=== PATIENT | female | born 1995 | race Caucasian/White ===

== ENCOUNTER 2023-05-22 04:21 | Inpatient (IN) ==
[2023-05-22] MEDS ORDERED: OXYTOCIN 30 UNITS/NSS 30 UNITS/500 ML BAG IV PRN ×3 (07:13→19:16)
[2023-05-22] MEDS ORDERED: LIDOCAINE 1% LOCAL 20 ML VIAL INFIL PRN (07:13)
[2023-05-22] MEDS: LACTATED RINGER'S 1,000 ML IV PRN ×2 (07:15→07:53)
--- NOTE | 2023-05-22 07:31 | History & Physical Report ---
Date of Service May 22, 2023 Assessment & Plan (1) Encounter for vaginal delivery: Plan: 27 year old female, , at 39 WGA presenting in labor: Proceed with monitoring of labor with plan for vaginal delivery GBS negative Epidural placed by anesthesiology Monitor T, category 1 Administer MMR post due to equivocal titer History of Present Illness Chief Complaint: labor Primary Care Provider: [facility] 27 year old female currently at 39 WGA with SANCHO 05/19/23 as determined by LMP, presenting in labor. Has been attending regular OB appointments. +painful contractions, getting stronger, + movement, -ROM, -vaginal bleeding. OB Labs: Blood Type O Positive 10/14/22 Antibody Screen NEGATIVE 10/14/22 Hemoglobin 12.0 g/dl (12.0-16.0) 03/07/23 Hematocrit 35.6 % (37.0-47.0) L 03/07/23 Mean Corpuscular Volume 84.9 fL (80.0-100.0) 10/14/22 Platelet Count 358 K/uL (130-400) 10/14/22 Rubella IgG Antibody Equivocal (Immune) L 10/14/22 Rapid Plasma Reagin Nonreactive (Nonreactive) 10/14/22 Hepatitis B Surface Antigen. NON-REACTIVE (NON-REACTIVE) 10/14/22 Hepatitis C Antibody (EIA) NON-REACTIVE (NON-REACTIVE) 10/14/22 HIV (1&2) Ag and Ab Confirmation NON-REACTIVE (NON-REACTIVE) 10/14/22 Glucose 1 Hour 50 gm Load 155 mg/dl (70-130) H 12/02/22 OB Optional Labs: Chlamydia trachomatis RNA Not Detected (NotDetected) 10/14/22 Neisseria gonorrhoeae RNA Not Detected (NotDetected) 10/14/22 Labs Reviewed: cfDNA--? concern sex chromosome, genetic counseling and karyotype normal declines msafp--smp horizon testing neg--smp Allergies Allergy/AdvReac Type Severity Reaction Status Date / Time No Known Allergies Allergy Verified 05/22/23 04:53 Home Medications Medication Instructions Recorded Confirmed Type prenat.vits,pineda,vla-yrzj-[id number] 1 tab PO DAILY 10/11/22 05/22/23 History citalopram 20 mg tablet 20 mg PO DAILY #90 tabs 11/22/22 05/22/23 Rx Patient History Medical History (Updated 05/22/23 @ 09:10 by Dane Riley DO) Varicella vaccine PMDD (premenstrual dysphoric disorder) Anxiety Surgical History S/P wisdom tooth extraction Family History (Updated 10/11/22 @ 11:06 by Lauren Penaloza RN) Grandmother (Maternal) Pancreatic cancer Grandfather No problems noted. Grandfather (Paternal) Dementia Family/Other Mitochondrial disease Uncle Neurofibromatosis Denies family history of Ovarian cancer Breast cancer Colorectal cancer Uterine cancer Social History (Updated 10/11/22 @ 11:04 by Lauren Penaloza RN) Smoking Status: Never smoker Do You Dip or Chew Tobacco: No; Hx Alcohol Use: No Hx Substance Use: No Preferred Language: Turkish Communication Ability: Effective Demolitionist Required: No Beliefs That Will Affect Care: None marital status: marital status details: louis hicks [phone] Current Living Situation: Spouse Current Living Situation Comment: lives with current occupational status: student 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 Physical Activity Frequency: 3-4 Times per Week Physical Activity Frequency Comment: tennis, walks on bike path Sunscreen Use: Yes Sexual Activity: has been sexually active within the last 12 months Assistive Devices: Contacts Review of Systems Denies fever/chills Denies SOB, chest pain Denies dysuria Denies headache or changes in vision Physical Exam Physical Exam: General: Alert and oriented. No acute distress Cardiac: Regular rate and rhythm, no murmurs appreciated Respiratory: Lungs clear to auscultation bilaterally, No increased work of b reathing Abdominal: Gravid uterus. Bowel sounds present. Extremities: No lower extremity edema, calves non-tender bilaterally Results & Data Vital Signs (Past 12 Hours) Vital Signs Temp Pulse Resp BP 05/22/23 07:08 89 128/85 05/22/23 04:45 91 H 121/80 05/22/23 04:41 36.4 C L 18 Laboratory Results 05/22/23 Range/Units 07:25 WBC 12.87 H (4.8-10.8) K/ul RBC 4.21 (4.20-5.40) M/uL Hgb 12.4 (12.0-16.0) g/dl Hct 36.7 L (37.0-47.0) % MCV 87.2 (80.0-100.0) fL MCH 29.5 (25.0-34.0) pg MCHC 33.8 (32.0-36.0) g/dL RDW Std Deviation 47.5 H (36.4-46.3) fL RDW Coeff of Nusrat 14.9 H (11.5-14.5) % Plt Count 246 (130-400) K/uL MPV 10.7 (9.4-12.4) fL Supervising Physician Co-Signing Physician Notes Resident Physician Supervision Note: I interviewed and examined the patient. Discussed with Dr. Riley and agree with findings and plan as documented in the note. Any exceptions or clarifications are listed here: 27yo @ 39 08/30, spontaneous labor. Epidural. Anticipate . Documented By: Lorraine Long DO Resident Activity Tracking Resident Involvement: Resident Care Provided Care Provided: OB Delivery
[2023-05-22 07:57] LABS: Hematocrit (blood only) 36.7 % (37.0-47.0); Hemoglobin 12.4 g/dl (12.0-16.0); Mean Corpuscular Hemoglobin 29.5 pg (25.0-34.0); Mean Corpuscular Hgb Conc 33.8 g/dL (32.0-36.0); Mean Corpuscular Volume 87.2 fL (80.0-100.0); Mean Platelet Volume 10.7 fL (9.4-12.4); Platelet Count 246 K/uL (130-400); RDW Coefficient of Variation 14.9 % (11.5-14.5); RDW Standard Deviation 47.5 fL (36.4-46.3); Red Blood Count 4.21 M/uL (4.20-5.40); White Blood Count 12.87 K/ul (4.8-10.8)
[2023-05-22] MEDS ORDERED: LIDOCAINE 2%/EPINEPHRINE 1:200,000 20 ML PF ONE (08:36)
[2023-05-22] MEDS ORDERED: fentANYL 2 MCG/ML BUPIVacaine 0.125%-NSS 100ML BAG ONE (08:36)
[2023-05-22] MEDS ORDERED: fentaNYL citrate PF 100 MCG/2 ML VIAL ONE (08:36)
[2023-05-22] MEDS ORDERED: ePHEDrine sulfate 50 MG/ML AMP ONE (08:36)
[2023-05-22] MEDS ORDERED: BUPIVACAINE 0.25% PF 30 ML VIAL ONE (08:36)
[2023-05-22] MEDS ORDERED: SODIUM CHLORIDE 0.9% PF INJ 10 ML VIAL ONE (08:36)
[2023-05-22] MEDS ORDERED: NALOXONE HCL 1 MG in SODIUM CHLORIDE 0.9% 1,000 ML IV PRN (09:22)
[2023-05-22] MEDS ORDERED: ROPIVACAINE 0.5% PF 5 MG/ML 20 ML VIAL EPI PRN (09:22)
[2023-05-22] MEDS ORDERED: fentaNYL citrate PF 100 MCG/2 ML VIAL EPI PRN (09:22)
[2023-05-22] MEDS ORDERED: fentANYL 2 MCG/ML BUPIVacaine 0.125%-NSS 100ML BAG EPI PRN (09:22)
[2023-05-22] MEDS ORDERED: SODIUM CHLORIDE 0.9% PF INJ 10 ML VIAL EPI STA (09:22)
[2023-05-22] MEDS ORDERED: LIDOCAINE 2%/EPINEPHRINE 1:200,000 20 ML PF EPI STA (09:22)
[2023-05-22] MEDS ORDERED: NALOXONE HCL 0.4 MG/1 ML VIAL/CARP IV PRN (09:22)
[2023-05-22] MEDS ORDERED: LIDOCAINE 2% MPF LOCAL 5 ML VIAL EPI PRN (09:22)
[2023-05-22] MEDS ORDERED: BUPIVACAINE 0.25% PF 30 ML VIAL EPI STA (09:22)
[2023-05-22] MEDS ORDERED: NALBUPHINE HCL 5 MG in SYRINGE 0 ML IV PRN (09:22)
[2023-05-22] MEDS ORDERED: ePHEDrine sulfate 50 MG/ML AMP IV PRN (09:22)
[2023-05-22] MEDS ORDERED: diphenhydrAMINE 50 MG/ML VIAL IV PRN (09:22)
[2023-05-22] MEDS ORDERED: SODIUM CHLORIDE 0.9% PF INJ 10 ML VIAL EPI PRN (09:22)
[2023-05-22] MEDS ORDERED: BUPIVACAINE 0.25% PF 30 ML VIAL EPI PRN (09:22)
[2023-05-22] MEDS ORDERED: fentaNYL citrate PF 100 MCG/2 ML VIAL EPI STA (09:22)
--- NOTE | 2023-05-22 09:22 | Anesthesiology Consultation ---
Date of Service May 22, 2023 Assessment & Plan Chart Review Chart Review: Acceptable Risk for Labor Epidural Consults Requested none ASA [id number] Proposed Anesthesia Anesthesia Type: Labor Epidural History Height/Weight Height: 4 ft 11 in Weight: 63.503 kg Allergies Allergy/AdvReac Type Severity Reaction Status Date / Time No Known Allergies Allergy Verified 05/22/23 04:53 Medications Home Medications Medication Instructions Recorded Confirmed Last Taken prenat.vits,pineda,vfg-acqy-gcupf 1 tab PO DAILY 10/11/22 05/22/23 05/21/23 11:00 citalopram 20 mg tablet 20 mg PO DAILY #90 tabs 11/22/22 05/22/23 05/21/23 11:00 Active Medications Generic Name Dose Route Start Last Admin Trade Name Freq PRN Reason Stop Dose Admin Lactated Ringer's 1,000 mls @ 125 mls/hr 05/22/23 07:13 05/22/23 07:53 Lr IV 05/24/23 07:12 125 mls/hr .Q8H PRN Administration L&D Protocol Protocol Past Medical History Medical History (Updated 05/22/23 @ 09:10 by Dane Riley DO) Varicella vaccine PMDD (premenstrual dysphoric disorder) Anxiety Past Family History Family History (Updated 10/11/22 @ 11:06 by Lauren Penaloza RN) Grandmother (Maternal) Pancreatic cancer Grandfather No problems noted. Grandfather (Paternal) Dementia Family/Other Mitochondrial disease Uncle Neurofibromatosis Denies family history of Ovarian cancer Breast cancer Colorectal cancer Uterine cancer Past Surgical History Surgical History S/P wisdom tooth extraction Social History Smoking Status: Never smoker Do You Dip or Chew Tobacco: No Hx Alcohol Use: No Hx Substance Use: No Physical Exam Vital Signs Last Vital Signs Temp 36.7 C 05/22/23 07:08 Pulse 93 H 05/22/23 09:18 Resp 18 05/22/23 04:41 BP 123/73 05/22/23 09:18 Pulse Ox 98 05/22/23 09:17 Testing Laboratory Results 05/22/23 07:25
--- NOTE | 2023-05-22 11:38 | Labor Progress Brief Note ---
Date of Service May 22, 2023 Subjective Comfortable with epidural. FHT Cat 1 Elba Q 3-5 SVE 4/80/-1, bulging membranes AROM clear fluid Agreeable to pitocin if ctx do not fern picker. Assessment & Plan Admission and Anticipated Discharge Date Admission Date: May 22, 2023 Results & Data Vital Signs (Past 12 Hours) Vital Signs Temp Pulse Resp BP Pulse Ox 05/22/23 11:32 105 H 98 05/22/23 11:29 118 H 91/55 L 05/22/23 11:27 102 H 97 05/22/23 11:24 100 H 94 05/22/23 11:22 107 H 97 05/22/23 11:18 98 H 94 05/22/23 11:17 112 H 97 05/22/23 11:14 113 H 93/54 L 05/22/23 11:12 98 H 95 05/22/23 11:07 107 H 97 05/22/23 11:02 117 H 96 05/22/23 10:59 100 H 95/53 L 05/22/23 10:57 100 H 96 05/22/23 10:52 104 H 96 05/22/23 10:50 100 H 94 05/22/23 10:47 104 H 95 05/22/23 10:44 102 H 101/58 L 05/22/23 10:43 104 H 94 05/22/23 10:42 109 H 96 05/22/23 10:37 118 H 98 05/22/23 10:32 97 H 96 05/22/23 10:29 101 H 106/60 05/22/23 10:27 103 H 96 05/22/23 10:22 97 H 97 05/22/23 10:17 123 H 96 05/22/23 10:14 101 H 103/60 05/22/23 10:12 112 H 98 05/22/23 10:07 97 H 97 05/22/23 10:02 104 H 96 05/22/23 10:01 100 H 108/63 05/22/23 09:57 110 H 96 05/22/23 09:52 112 H 97 05/22/23 09:47 95 H 96 05/22/23 09:43 115 H 102/56 L 05/22/23 09:42 111 H 97 05/22/23 09:38 103 H 114/66 05/22/23 09:37 100 H 98 05/22/23 09:34 85 120/76 05/22/23 09:32 103 H 97 05/22/23 09:28 113 H 108/67 05/22/23 09:27 102 H 98 05/22/23 09:23 100 H 120/78 05/22/23 09:22 106 H 98 05/22/23 09:18 93 H 123/73 05/22/23 09:17 106 H 98 05/22/23 09:15 113 H 111/74 05/22/23 09:14 101 H 118/71 05/22/23 09:12 123 H 114/76 97 05/22/23 09:10 111 H 118/70 05/22/23 09:08 101 H 135/80 05/22/23 09:07 97 H 98 05/22/23 09:06 88 140/88 05/22/23 09:04 108 H 135/67 05/22/23 09:02 110 H 124/88 99 05/22/23 08:57 101 H 98 05/22/23 08:52 105 H 98 05/22/23 08:47 111 H 97 05/22/23 08:42 107 H 98 05/22/23 07:08 36.7 C 89 128/85 05/22/23 04:45 91 H 121/80 05/22/23 04:41 36.4 C L 18 Coding Level of Care Code None
--- NOTE | 2023-05-22 19:14 | Delivery Summary ---
Vaginal Delivery Summary Date of Service May 22, 2023 Vaginal Delivery Summary and 2nd Degree LAC Vaginal Delivery Summary: Pre-delivery diagnoses: 27yo @ 39 08/30, spontaneous labor Post-delivery diagnoses: same Procedure: spontaneous vaginal delivery Surgeon: Lorraine Long DO Complications: none Findings: Viable female . Apgars: 7, 7, 9. Weight pending, please see nursery records. Estimated blood loss: 300ml Description of delivery: The patient progressed to complete with epidural anesthesia. She then began to push. She spontaneously vaginally delivered a viable from the cephalic presentation. The head delivered in LORIE pos ition. No nuchal. The anterior shoulder delivered, followed by the posterior shoulder, followed by the body. The baby was placed on mother's abdomen and a spontaneous cry was heard. Delayed cord clamping was employed, and the cord was doubly clamped and cut. Cord blood was obtained. The placenta was delivered spontaneously intact with a 3-vessel cord. The uterus and vagina were swept of clots and debris. IV pitocin was given. The uterus became firm. The cervix, vagina, and perineum were inspected and a 2nd degree perineal laceration was noted, bilateral sulcal extensions - repaired with 3-0 Vicryl in standard fashion. Excellent hemostasis was observed. The mother and baby are recovering in stable and good condition in the room. Sponge, needle and instrument counts were correct x 2. Lorraine Long DO [facility] Vaginal Delivery Charge Vaginal Delivery Codes: 30742 global code for the antepartum, delivery, and post- Delivery Type Details: and 2nd Degree LAC
[2023-05-22] MEDS ORDERED: BENZOCAINE 20% SPRY 85 APPLN/85 GM CAN EXT PRN (19:16)
[2023-05-22] MEDS ORDERED: MEASLES, MUMPS & RUBELLA VIRUS VACCINE (MMR) VIAL SQ ONE (19:16)
[2023-05-22] MEDS ORDERED: bisacodyL 10 MG SUPP PR PRN (19:16)
[2023-05-22] MEDS ORDERED: DIPHTHERIA/TETANUS/PERTUSSIS Vaccine (Tdap, Age 7+yrs) 0.5mL SYR/VL IM ONE (19:16)
[2023-05-22] MEDS ORDERED: oxyCODONE/ACETAMINOPHEN 5mg/325mg TAB PO PRN (19:16)
[2023-05-22] MEDS ORDERED: HYDROCORTISONE ACETATE 25 MG SUPP PR PRN (19:16)
[2023-05-22] MEDS ORDERED: ACETAMINOPHEN 325 MG TAB PO PRN (19:16)
[2023-05-22] MEDS: IBUPROFEN 600 MG TAB PO PRN (21:23)
[2023-05-22] MEDS: DOCUSATE SODIUM 100 MG CAP PO SCH (21:23)
--- NOTE | 2023-05-22 22:46 | Anesthesia Procedure Note ---
Date of Service May 22, 2023 Anesthesia Post Epidural Note Vital Signs Vital Signs: Temp Pulse Resp BP Pulse Ox O2 Del Method 36.8 C 96 H 20 106/65 98 Room Air 05/22/23 21:28 05/22/23 21:28 05/22/23 21:28 05/22/23 21:28 05/22/23 21:28 05/22/23 21:28 Pain Intensity Abdomen: Pain Intensity: 4 Notes Mental Status: alert / awake / arousable Nausea / Vomiting: adequately controlled Pain: adequately controlled Airway Patency, RR, SpO2: stable & adequate BP & HR: stable & adequate Hydration State: stable & adequate Neuraxial Anesthesia: was administered and sensory block is resolving Anesthetic Complications: no major complications apparent and Pt Satisfied with anesthetic care Epidural: Removed without complications and With tip intact
[2023-05-23] MEDS: IBUPROFEN 600 MG TAB PO PRN ×4 (02:07→20:59)
--- NOTE | 2023-05-23 04:36 | Obstetrical Progress Note ---
Date of Service <Dane Riley DO - Last Filed: 05/23/23 06:11> May 23, 2023 Assessment & Plan <Dane Riley DO - Last Filed: 05/23/23 06:11> (1) Spontaneous vaginal delivery: Plan 27 year old female, , PPD#1: Eating well, voiding well, ambulating well Vitals reviewed, WNL Pain well controlled with Motrin Routine post care - OOB, ambulation, diet progression as tolerated Will have 6 week follow up with Dr. Long <Lorraine Long, DO - Last Filed: 05/23/23 07:57> (1) Spontaneous vaginal delivery: Subjective <Dane Riley DO - Last Filed: 05/23/23 06:11> Ambulation: ambulating normally Voiding: no voiding problems Passing Gas:: Yes Diet Tolerance:: regular diet Lochia:: Moderate Feeding Type:: breast feeding Pain well controlled with Motrin Review of Systems -Denies fever or chills -Denies dyspnea, chest pain, or palpitations -Denies dysuria -Denies headache or changes in vision Physical Exam <Dane Riley DO - Last Filed: 05/23/23 06:11> General: Alert and oriented. No acute distress Cardiac: Regular rate and rhythm, no murmurs appreciated Respiratory: Lungs clear to auscultation bilaterally, No increased work of breathing Abdominal: Soft, non-tender, non-distended. Bowel sounds present. Uterus: Uterine fundus firm, palpable below umbilicus Extremities: No lower extremity edema, calves non-tender bilaterally Results & Data <Dane Riley DO - Last Filed: 05/23/23 06:11> Vital Signs (Past 12 Hours) Vital Signs Temp Pulse Pulse Resp BP BP Pulse Ox 05/23/23 03:55 36.6 C 80 18 121/81 98 05/22/23 23:19 36.9 C 104 H 20 108/71 97 05/22/23 21:28 36.8 C 96 H 20 106/65 98 05/22/23 21:07 111 H 113/73 05/22/23 20:52 116 H 118/72 05/22/23 20:37 125 H 117/70 05/22/23 20:23 100 H 120/77 05/22/23 20:07 109 H 126/81 05/22/23 19:52 99 H 113/69 05/22/23 19:37 104 H 118/73 05/22/23 19:22 18 05/22/23 19:22 113 H 117/70 05/22/23 19:07 18 05/22/23 19:07 109 H 112/68 05/22/23 19:02 110 H 97 05/22/23 18:59 108 H 104/60 05/22/23 18:57 113 H 96 05/22/23 18:52 114 H 97 05/22/23 18:47 121 H 96 05/22/23 18:42 146 H 96 05/22/23 18:37 126 H 98 05/22/23 18:32 140 H 95 05/22/23 18:29 129 H 108/69 05/22/23 18:27 137 H 98 05/22/23 18:22 135 H 97 05/22/23 18:17 114 H 96 05/22/23 18:14 110 H 116/81 05/22/23 18:12 111 H 96 05/22/23 18:07 128 H 97 05/22/23 18:02 120 H 95 05/22/23 17:59 37.0 C 120 H 98/56 L 05/22/23 17:57 118 H 95 05/22/23 17:52 121 H 96 05/22/23 17:47 120 H 97 05/22/23 17:45 117 H 100/54 L 05/22/23 17:42 108 H 96 05/22/23 17:37 108 H 96 05/22/23 17:32 109 H 95 05/22/23 17:30 110 H 105/59 L 05/22/23 17:27 109 H 97 05/22/23 17:22 112 H 96 05/22/23 17:17 102 H 95 05/22/23 17:12 105 H 96 05/22/23 17:07 96 H 97 05/22/23 17:02 112 H 96 05/22/23 17:01 115 H 83/46 L 05/22/23 16:57 82 95 05/22/23 16:52 103 H 95 05/22/23 16:51 101 H 92 05/22/23 16:47 118 H 96 05/22/23 16:44 122 H 91/52 L 05/22/23 16:42 107 H 96 05/22/23 16:37 104 H 95 O2 Del Method 05/23/23 03:55 Room Air 05/22/23 23:19 Room Air 05/22/23 21:28 Room Air 05/22/23 21:07 05/22/23 20:52 05/22/23 20:37 05/22/23 20:23 05/22/23 20:07 05/22/23 19:52 05/22/23 19:37 05/22/23 19:22 05/22/23 19:22 05/22/23 19:07 05/22/23 19:07 05/22/23 19:02 05/22/23 18:59 05/22/23 18:57 05/22/23 18:52 05/22/23 18:47 05/22/23 18:42 05/22/23 18:37 05/22/23 18:32 05/22/23 18:29 05/22/23 18:27 05/22/23 18:22 05/22/23 18:17 05/22/23 18:14 05/22/23 18:12 05/22/23 18:07 05/22/23 18:02 05/22/23 17:59 05/22/23 17:57 05/22/23 17:52 05/22/23 17:47 05/22/23 17:45 05/22/23 17:42 05/22/23 17:37 05/22/23 17:32 05/22/23 17:30 05/22/23 17:27 05/22/23 17:22 05/22/23 17:17 05/22/23 17:12 05/22/23 17:07 05/22/23 17:02 05/22/23 17:01 05/22/23 16:57 05/22/23 16:52 05/22/23 16:51 05/22/23 16:47 05/22/23 16:44 05/22/23 16:42 05/22/23 16:37 Supervising Physician <Lorraine Long, DO - Last Filed: 05/23/23 07:57> Co-Signing Physician Notes Resident Physician Supervision Note: I was present with Dr. Riley during the history and exam. I discussed the case with the resident and agree with the findings and plan as documented in the note. Any exceptions or clarifications are listed here: PPD#1 doing well, routine PP care, anticipate DC home tomorrow. Documented By: Lorraine Long DO Resident Activity Tracking <Dane Riley DO - Last Filed: 05/23/23 06:11> Resident Involvement: Resident Care Provided Care Provided: OB Delivery
[2023-05-23 06:41] LABS: Hematocrit (blood only) 31.8 % (37.0-47.0); Hemoglobin 10.7 g/dl (12.0-16.0)
[2023-05-23] MEDS: PRENATAL VITAMIN 1 TAB PO SCH (07:50)
[2023-05-23] MEDS: DOCUSATE SODIUM 100 MG CAP PO SCH ×2 (07:50→20:59)
[2023-05-23] MEDS: CITALOPRAM 20 MG TAB PO SCH (09:26)
[2023-05-23] MEDS ORDERED: bisacodyL 5 MG TABEC PO SCH (20:00)
[2023-05-24] MEDS: IBUPROFEN 600 MG TAB PO PRN ×3 (04:06→13:46)
--- NOTE | 2023-05-24 04:43 | Obstetrical Progress Note ---
Date of Service <Dane Osvaldo - Last Filed: 05/24/23 06:27> May 24, 2023 Assessment & Plan <Dane Riley - Last Filed: 05/24/23 06:27> (1) Spontaneous vaginal delivery: Plan 27 year old female, , PPD#2: Eating well, voiding well, ambulating well Vitals reviewed, WNL Pain well controlled with Motrin Routine post care - OOB, ambulation, diet progression as tolerated Will have 6 week follow up with Dr. Long <Jorgito Russell MD - Last Filed: 05/25/23 09:36> (1) Spontaneous vaginal delivery: Subjective <Dane Osvaldo - Last Filed: 05/24/23 06:27> Ambulation: ambulating normally Voiding: no voiding problems Passing Gas:: Yes Diet Tolerance:: regular diet Lochia:: Moderate Feeding Type:: breast feeding Pain well controlled with Motrin Review of Systems -Denies fever or chills -Denies dyspnea, chest pain, or palpitations -Denies dysuria -Denies headache or changes in vision Physical Exam <Danemiriam Riley - Last Filed: 05/24/23 06:27> General: Alert and oriented. No acute distress Cardiac: Regular rate and rhythm, no murmurs appreciated Respiratory: Lungs clear to auscultation bilaterally, No increased work of breathing Abdominal: Soft, non-tender, non-distended. Bowel sounds present. Uterus: Uterine fundus firm, palpable below umbilicus Extremities: No lower extremity edema, calves non-tender bilaterally Results & Data <Danemiriam Riley - Last Filed: 05/24/23 06:27> Vital Signs (Past 12 Hours) Vital Signs Temp Pulse Resp BP Pulse Ox O2 Del Method 05/23/23 23:59 36.6 C 89 18 114/77 97 Room Air 05/23/23 20:45 36.6 C 98 H 20 102/71 97 Room Air Supervising Physician <Jorgito Russell MD - Last Filed: 05/25/23 09:36> Co-Signing Physician Notes Patient seen with resident and agree with the above findings and plan. Stable for discharge Resident Activity Tracking <Dane Riley DO - Last Filed: 05/24/23 06:27> Resident Involvement: Resident Care Provided Care Provided: OB Delivery
[2023-05-24] MEDS: DOCUSATE SODIUM 100 MG CAP PO SCH (08:47)
[2023-05-24] MEDS: PRENATAL VITAMIN 1 TAB PO SCH (08:47)
[2023-05-24] MEDS: CITALOPRAM 20 MG TAB PO SCH (08:48)
== END 2023-05-24 16:30 | disposition home or self-care (01) | DRG 807 ==
LOC: OPB 04:21 → 4S1 04:22 → 4E2 21:21